=== PATIENT | female | born 1955 | race Caucasian/White ===

== ENCOUNTER 2020-10-12 08:32 | Day surgery (SDC) | payer MEDICARE, BC ==
[~2020-10-12 08:32] MED LIST: Sodium Chloride 0.9% 1,000 ML IV SCH
[2020-10-12] MEDS ORDERED: Midazolam 1 MG/ML 2 ML SDV ONE (08:44)
[2020-10-12] MEDS ORDERED: fentaNYL 100 MCG/2 ML SDV ONE (08:44)
[2020-10-12] MEDS ORDERED: Propofol 200 MG/20 ML SDV ONE (08:44)
[2020-10-12 11:42] VITALS: BP 105/67; PULSE 54
--- NOTE | 2020-10-15 08:37 | OR ---
DATE OF PROCEDURE: 10/12/2020 SURGEON: Gregory Celaya MD PROCEDURE: Colonoscopy. PREOPERATIVE DIAGNOSES: History of colorectal cancer approximately 10 years ago/screening colonoscopy. POSTOPERATIVE DIAGNOSES: History of colorectal cancer approximately 10 years ago/screening colonoscopy. RISKS: Risks, benefits, alternatives, and limitations including but not limited to infection, bleeding, perforation, and false positives and false negatives were explained to patient who wished to proceed. PROCEDURE IN DETAIL: The patient was placed in supine position. The ostomy was identified, and the scope was introduced via the ostomy. This was advanced to the ileocecal valve, and photo was taken of the appendiceal orifice. The scope was brought back through the colon, and the patient was noted to have mild diverticulosis. No evidence of old or new blood. No polyps. No masses. The scope was not retroflexed as this was an ostomy. The patient tolerated the procedure well. Greater than 90% of luminal surface could be seen. Greater than 8 minutes was spent removing the scope. The patient tolerated the procedure well. Gregory Celaya MD /[id number]
== END 2020-10-12 11:40 | disposition home or self-care (01) ==
LOC: JP.SDS 08:32
PROVIDERS: ATTEND Surgery
DX: Z12.11 Encounter for screening for malignant neoplasm of colon (principal); Z85.038 Personal history of other malignant neoplasm of large intestine; N18.9 Chronic kidney disease, unspecified
CPT/HCPCS: 44388; J2250; J2704; J3010; J7030